=== PATIENT | male | born 2000 | race Caucasian/White ===

== ENCOUNTER 2023-09-26 18:51 | Emergency (ER) | payer OTHER, SELFPAY ==
[2023-09-26 18:58] VITALS: BP 125/84; PULSE 98; RESP 20; TEMP 38.3; O2SAT 98
--- NOTE | 2023-09-26 19:10 | ED.URI ---
HPI - URI/Sore Throat General Chief Complaint: Upper Respiratory Infection Stated Complaint: Sore Throat/Chills/Cough/Congestion Source: patient and RN notes reviewed Mode of arrival: ambulatory Limitations: no limitations History of Present Illness HPI Narrative: 23-year-old male presented for complaint of sore throat, headache, body aches, sinus pressure/congestion, cough, fever/chills. onset yesterday. Endorses exposure to COVID. Denies sob, wheezing, n/v/d. positive home covid test MD elicited complaint: cough Related Data Home Medications Medication Instructions Recorded Confirmed No Home Medications 09/26/23 09/26/23 Allergies Allergy/AdvReac Type Severity Reaction Status Date / Time No Known Allergies Allergy Unknown Unverified 09/26/23 19:01 Review of Systems Review of Systems: CONSTITUTIONAL: Endorses malaise, chills, sweats, fever EYES: Denies visual changes, redness, or discharge ENT: Reports rhinorrhea, congestion, sinus pain, sore throat CARDIOVASCULAR: Denies chest pain, palpitations, edema RESPIRATORY: Reports cough, post nasal drainage. Denies dyspnea GASTROINTESTINAL: Denies abdominal pain, nausea, vomiting, diarrhea SKIN: Denies rash or itching MUSCULOSKELETAL: Endorses myalgia Exam Narrative: GENERAL: mildly Ill-appearing, nontoxic no acute distress. EYES: PERRLA, conjunctivae clear ENT: Mucous membranes moist. TM pearly new with dull light reflex bilaterally; no tragal tenderness. Oropharynx erythematous without lesions or exudate, no drooling, no hoarseness, no trismus, uvula midline. No tripod positioning, muffled voice, soft palate or pharyngeal wall bulging NECK: Supple. No lymphadenopathy CHEST: Clear to auscultation, breath sounds equal. No wheezing, rhonchi, rales, or stridor. No respiratory distress, speaks in full sentences. HEART: Regular rate and rhythm. No murmur heard. SKIN: Warm, dry, no rash. NEURO: Alert and oriented x3. PSYCH: Normal mood and affect Course Course Emergency Course: Patient is aware of diagnosis, understands and agrees to treatment plan. Anticipatory guidance given. Patient agrees to follow-up as directed and is aware of reasons to seek care at the emergency department. Portions of this record may have been created with voice recognition software Level of Care: Express Care Visit Vital Signs Vital signs: Vital Signs Temperature 100.9 F H 09/26/23 18:58 Pulse Rate 98 09/26/23 18:58 Respiratory Rate 20 09/26/23 18:58 Blood Pressure 125/84 09/26/23 18:58 Pulse Oximetry 98 09/26/23 18:58 Oxygen Delivery Room Air 09/26/23 18:58 Temperature 100.9 F H 09/26/23 18:58 Pulse Rate 98 09/26/23 18:58 Respiratory Rate 20 09/26/23 18:58 Blood Pressure 125/84 09/26/23 18:58 Pulse Oximetry 98 09/26/23 18:58 Oxygen Delivery Room Air 09/26/23 18:58 reviewed MDM - URI/Sore Throat MDM Narrative Medical decision making narrative: positive COVID. Discussed physical exam findings. Advised supportive measures and signs/symptoms to go to the ER. Pt is appropriate for outpt treatment and f/u. Differential Diagnosis Differential diagnosis: Likely upper respiratory infection, sinusitis and viral infection Discharge Plan Discharge Clinical Impression: COVID-19 Patient Disposition: Home, Self-Care Condition: Stable Instructions: COVID-19 (Coronavirus Disease 2019) (ED) Additional Instructions: Your rapid COVID test was positive today. The following updated recommendations have been made by the CDC and local Health Departments, regarding COVID-19: - When people get sick with a respiratory virus, they stay home and away from others. - Return to normal activities when, for at least 24 hours, symptoms are improving overall, and if a fever was present, it has been gone without use of a fever-reducing medication. - Once people resume normal activities, they are encouraged to take additional preventio
== END 2023-09-26 19:18 | disposition home or self-care (01) ==
PROVIDERS: Emergency Provider Nurse Practitioner Family
DX: U07.1 COVID-19 (principal)
CPT/HCPCS: 87426; 87804; 99203; G0463

== ENCOUNTER 2023-11-20 13:37 | Emergency (ER) | payer OTHER, SELFPAY ==
[2023-11-20 13:50] VITALS: BP 116/70; RESP 16; TEMP 36.7; O2SAT 99
--- NOTE | 2023-11-20 14:19 | ED.EAR ---
HPI - Ear Problem General Chief complaint: Ear Stated complaint: left ear Time Seen by Provider: 11/20/23 14:19 Source: patient, RN notes reviewed and old records reviewed Mode of arrival: ambulatory Limitations: no limitations History of Present Illness HPI Narrative: 23 year old male who presents to [facility] with complaints of left ear pressure and decreased hearing with feelings of blockage in left ear. Patient reports that he just noticed it around noon today, has had problems of wax in his ears in the past. Patient denies any other ill symptoms, no fevers or any sinus congestion or drainage. MD Complaint: decreased hearing and other (feels like blocked with wax) Location: left ear Duration: constant Severity: moderate Discharge from ear: Reports no Treatment prior to arrival: none Related Data Home Medications Medication Instructions Recorded Confirmed No Home Medications 09/26/23 11/20/23 Allergies Allergy/AdvReac Type Severity Reaction Status Date / Time No Known Allergies Allergy Unknown Unverified 11/20/23 13:56 Review of Systems Review of Systems: CONSTITUTIONAL: Denies malaise, chills, sweats, or fever. EYES: Denies visual changes, redness, or discharge. ENT: Reports no rhinorrhea, congestion, sinus pain, left ear pressure and decreased hearing, no sore throat. CARDIOVASCULAR: Denies chest pain, palpitations, or edema. RESPIRATORY: Reports no cough.? Denies dyspnea. GASTROINTESTINAL: Denies abdominal pain, nausea, vomiting, diarrhea SKIN: Denies rash or itching. MUSCULOSKELETAL: Denies myalgia. NEUROLOGIC: Denies headache. All systems reviewed & are unremarkable except as noted in HPI and below PMFSH Past Medical History Medical History (Updated 11/21/23 @ 12:55 by Carly Welch NP) Cerumen impaction Surgical History Surgical History (Updated 11/21/23 @ 12:57 by Carly Welch NP) History of repair of pyloric stenosis age 1 month Social History Social History (Updated 11/21/23 @ 12:58 by Carly Welch NP) Smoking status: Never smoker Alcohol intake: unknown Substance use type: does not use and marijuana Living arrangements: with family Gender identity (if verbalized by the patient): Male Comments At time of signature, agree with nursing past medical, surgical, social and family history. There is no relevant family history pertinent to the presenting complaint Exam Narrative: GENERAL: Well-appearing, well-nourished, and in no acute distress. HEAD: Normocephalic EYES: PERRLA, conjunctivae clear ENT: Nares clear, turbinates edematous and erythematous, clear discharge. Mucous membranes moist.Right TM pearly new with dull light reflex, left ear cerumen impaction, TM noted pearly new after cleansing; no tragal tenderness. Oropharynx erythematous without lesions. Tonsils not enlarged and without exudate, no drooling, no hoarseness, no trismus, uvula midline. NECK: Supple. No lymphadenopathy CHEST: Clear to auscultation, breath sounds equal. No wheezing, rhonchi, rales, or stridor. No respiratory distress, speaks in full sentences.SAO2 99% on room air HEART: Regular rate and rhythm. No murmur heard. SKIN: Warm, dry, no rash. NEURO: Alert and oriented x3. PSYCH: Normal mood and affect Course Course Emergency Course: Patient is aware of diagnosis, understands and agrees to treatment plan.? Anticipatory guidance given.? Patient agrees to follow-up as directed and is aware of reasons to seek care at the emergency department. Portions of this record may have been created with voice recognition software Level of Care: Express Care Visit Vital Signs Vital signs: Vital Signs Temperature 36.7 C 11/20/23 13:50 Respiratory Rate 16 11/20/23 13:50 Blood Pressure 116/70 11/20/23 13:50 Pulse Oximetry 99 11/20/23 13:50 Temperature 36.7 C 11/20/23 13:50 Respiratory Rate 16 11/20/23 13:50 Blood Pressure
== END 2023-11-20 14:55 | disposition home or self-care (01) ==
PROVIDERS: Emergency Provider Registered Nurse
DX: H61.22 Impacted cerumen, left ear (principal)
CPT/HCPCS: 69209; 99212; G0463